=== PATIENT | male | born 2005 | race African-American/Black ===

== ENCOUNTER 2024-06-05 15:39 | Emergency (ER) | payer OTHER, SELFPAY ==
[2024-06-05 15:40] VITALS: BP 122/76
--- NOTE | 2024-06-05 17:01 | ED.GENMED ---
History of Present Illness
General
Chief Complaint: BURN-MINOR
Source: patient
Exam Limitations: none
Time Seen by Provider: 06/05/24 16:35
Nursing documentation reviewed up to this point in time: agreed with
History of Present Illness
History of Present Illness:
19-year-old male presents for left index finger second-degree thermal burn that happened 1 week ago on
While at work [employer]. Patient says that initially there was a blister that ended up popping. Now the skin is discolored and it feels like it has decree sensation so he want to get looked at. He has not had any significant pain, trouble moving
the joint, swelling. He is unclear when his last tetanus shot was. He was putting some topical burn cream on until more recently.
Past History
Past History
ED Past Medical History: None
ED Past Surgical History: None
Social History
Tobacco: Non-smoker
Alcohol: None
Personal: Single
Living: with family
Employment: Employed
Review of Systems
Review of Systems
Allergies reviewed?: Yes
All Other Systems: Not applicable
Phy Exam
Physical Exam
Physical Exam:
GENERAL: Alert , in no apparent distress, comfortable at rest
CV: cap refill intact
NEUROLOGICAL: Alert and oriented, no focal neuro deficits, , 5/5 strength, sensation intact, ambulation slight limp right leg
SKIN: Warm and dry, 2.5 x 1.5 cm area of hyperpigmented skin to left volar index finger from fat pad to past the DIP joint
no swelling
nontender
no weeping
no signs of infection
no ulceration
MUSCULOSKELETAL: full finger ROM L index finger, nontender
some dimminished sensation left fingertip over the hyperpigmente
PSYCH: Normal and appropriate interaction.
Course
Orders/Labs/Results
Orders:
Orders
06/05/24 17:00
Tetanus/Diphth/Acelpertussis [Adacel] 0.5 ml IM .ONCE ONE
Vital Signs
Initial and Last Documented VS:
Initial Vital Signs
Temp Pulse Resp BP Pulse Ox
98.6 F 51 19 122/76 97
06/05/24 15:40 06/05/24 15:40 06/05/24 15:40 06/05/24 15:40 06/05/24 15:40
Last Documented Vital Signs
Temp Pulse Resp BP Pulse Ox
98.6 F 57 20 121/55 99
06/05/24 15:40 06/05/24 17:20 06/05/24 17:20 06/05/24 17:20 06/05/24 17:20
MDM/Problems Addressed
Differential Diagnosis Includes:
burn, healing skin, scar
MDM/Problems Addressed:
19 y/o M with burn from rice cooker while working at [employer] last week
had a blister that popped
now skin is hyperpigmented and leathery and pt wanted evaluation
no drainage, pain, swelling, fever
full rom of th efinger
the finger skin where he was burned was small area of the index finger that is hyperpuigmented, flat, not raised, no drainage
appears like healing burned skin
no concerns for vascular emergency or infection
f/u burn center as needed
return prn
*Critical Care Note
Total Time (30-74mins, 75-104mins- exclusive of procedures): Not Applicable
ED Attending Note
-
Portions of this chart may have been created with voice recognition software.� Occasional wrong word or��sound alike� substitutions may have occurred due to the inherent limitations of voice recognition software.
Discharge Plan
Departure
Patient Disposition: Home (Routine Discharge)
Date of Disposition: 06/05/24
Time of Disposition: 17:06
Patient with high blood pressure during this ER visit?: No
Covid-19: Not Applicable
Discharge Problem:
Hyperpigmentation, Burn scar
Instructions: [facility] (DC)
Prescriptions:
New
bacitracin 500 unit/gram ointment
1 applic topical Q8H 7 Days Qty: 28 0RF
Referrals:
NONE,* [Family Provider] -
Activity Restrictions/Additional Instructions:
Your burn became hyperpigmented as a result of injury to the skin cells. This can take time to heal. Oftentimes it lightens up over time but it can remain permanent. It does not look infected now. You can try bacitracin ointment for another week
twice a day. It also is recommended that you follow-up with the burn doctor as needed if you are concerned about scarring. Return for ulcerations, weepiness, inability to move it or any concerns
the burn center closest to here is [facility]
Interventions
Interventions:
*Risk Screen - Suicide Last Done: 06/05/24 15:40
*General Assessment Last Done: 06/05/24 15:40
*Neglect/Abuse Screening Last Done: 06/05/24 15:40
*ED COVID-19 Vaccine History Last Done: 06/05/24 15:40
*Nursing Disposition Last Done: 06/05/24 17:20
ED-Skin Assessment Last Done: 06/05/24 16:30
Discharge Date and Time
Discharge Date/Time: 06/05/24 17:20
Print Language: GREEK
[2024-06-05] MEDS: ADACEL 0.5 ML IM (17:08)
[2024-06-05 17:19] VITALS: BP 121/55
[2024-06-05 17:20] VITALS: BP 121/55
== END 2024-06-05 17:20 | disposition home or self-care (01) ==
LOC: EMR 15:39
PROVIDERS: EMERGENCY PHYSICIAN Emergency Medicine
DX: T23.222A Burn of second degree of single left finger (nail) except thumb, initial encounter (principal); L81.9 Disorder of pigmentation, unspecified; W86.8XXA Exposure to other electric current, initial encounter; Y93.89 Activity, other specified; Y92.89 Other specified places as the place of occurrence of the external cause; Y99.0 Civilian activity done for income or pay; Z23 Encounter for immunization
CPT/HCPCS: 99283; 90471; 90715